=== PATIENT | female | born 1985 | race African-American/Black ===

== ENCOUNTER 2018-08-15 19:06 | Emergency (ER) | payer MEDICAID ==
[~2018-08-15] VITALS: Ht 167.6 cm; Wt 118.0 kg
[~2018-08-15 19:06] MED LIST: ABILIFY; ASPI-986 PO; PREN-88 PO; ZYPREXA
[2018-08-15 19:46] VITALS: BP 167/108
[2018-08-15] MEDS ORDERED: ACETAMINOPHEN 325MG TABLET ONE (19:56)
[2018-08-15 21:05] LABS: CLARITY URINE CLEAR (CLEAR); COLOR URINE DARK YELLOW (YELLOW); KETONES URINE TRACE (NEGATIVE); LEUKOCYTE ESTERASE URINE NEGATIVE (NEGATIVE); NITRITE URINE NEGATIVE (NEGATIVE); OCCULT BLOOD URINE 2+ (NEGATIVE); PH URINE 6.5 (4.5-8.0); PROTEIN URINE 1+ (NEGATIVE); SPECIFIC GRAVITY URINE 1.042 (1.005-1.030)
== END 2018-08-15 22:07 | disposition left against medical advice (07) ==
LOC: ER 19:06
DX: M79.10 Myalgia, unspecified site (principal); R68.83 Chills (without fever); Z53.21 Procedure and treatment not carried out due to patient leaving prior to being seen by health care provider
CPT/HCPCS: 81025

== ENCOUNTER 2021-07-07 11:31 | Emergency (ER) | payer MEDICAID ==
[~2021-07-07] VITALS: Ht 172.7 cm; Wt 92.0 kg
[2021-07-07] MEDS ORDERED: IPRATROPIUM BROMIDE (0.02%) 0.5MG/2.5ML NEB HHN STA (11:47)
[2021-07-07] MEDS ORDERED: METHYLPREDNISOLONE SOD SUCC 125 MG/2 ML VIAL IM STA (11:47)
[2021-07-07] MEDS ORDERED: ALBUTEROL (0.083%) 2.5MG/3ML NEB HHN STA (11:47)
[2021-07-07] MEDS ORDERED: IPRATROPIUM BROMIDE (0.02%) 0.5MG/2.5ML NEB HHN NR (13:15)
[2021-07-07] MEDS ORDERED: ALBUTEROL (0.083%) 2.5MG/3ML NEB HHN NR (13:30)
[2021-07-07] MEDS ORDERED: ALBU18HF2 IH (14:43)
[2021-07-07] MEDS ORDERED: P50 PO (14:43)
[2021-07-07 14:47] VITALS: BP 135/77
== END 2021-07-07 15:07 | disposition home or self-care (01) ==
LOC: ER 13:29
DX: J45.901 Unspecified asthma with (acute) exacerbation (principal); I49.9 Cardiac arrhythmia, unspecified; Z88.2 Allergy status to sulfonamides
CPT/HCPCS: 71045; 93005; 94640; 96372; 99284; J2930; Z7610

== ENCOUNTER 2021-08-28 09:24 | Emergency (ER) | payer MEDICAID, OTHER ==
[~2021-08-28] VITALS: Ht 172.7 cm; Wt 131.0 kg
[~2021-08-28 09:24] MED LIST changes: +ALBU18HF2 IH; +P50 PO
[2021-08-28] MEDS ORDERED: PREDNISONE 20MG TABLET PO STA (09:40)
[2021-08-28] MEDS ORDERED: ALBUTEROL (0.083%) 2.5MG/3ML NEB HHN STA ×2 (09:40→09:45)
[2021-08-28] MEDS ORDERED: IPRATROPIUM BROMIDE (0.02%) 0.5MG/2.5ML NEB HHN STA ×2 (09:40→09:45)
[2021-08-28] MEDS ORDERED: P50 MT (10:04)
[2021-08-28] MEDS ORDERED: GUAI600T26 MT (10:04)
[2021-08-28] MEDS ORDERED: ALBU6.7H9 INH (10:04)
[2021-08-28 11:03] VITALS: BP 140/86
== END 2021-08-28 11:04 | disposition home or self-care (01) ==
LOC: ER 09:24
DX: J45.901 Unspecified asthma with (acute) exacerbation (principal); Z88.2 Allergy status to sulfonamides
CPT/HCPCS: 71045; 81025; 94644; 99285; J7512; Z7610

== ENCOUNTER 2021-12-07 11:47 | Emergency (ER) | payer MEDICAID, OTHER ==
[~2021-12-07] VITALS: Ht 172.7 cm; Wt 85.0 kg
[~2021-12-07 11:47] MED LIST changes: +ALBU6.7H9 INH; +GUAI600T26 MT; +P50 MT
[2021-12-07 12:03] VITALS: BP 130/93
[2021-12-07] MEDS ORDERED: IPRATROPIUM/ALBUTEROL 0.5-3(2.5)MG/3ML NEB HHN ONE (13:30)
[2021-12-07] MEDS ORDERED: P20 MT (15:15)
[2021-12-07] MEDS ORDERED: PREDNISONE 20MG TABLET PO ONE (15:15)
== END 2021-12-07 15:38 | disposition home or self-care (01) ==
LOC: ER 11:47
DX: J45.901 Unspecified asthma with (acute) exacerbation (principal); J06.9 Acute upper respiratory infection, unspecified; Z20.822 Contact with and (suspected) exposure to COVID-19; Z79.82 Long term (current) use of aspirin; Z88.2 Allergy status to sulfonamides
CPT/HCPCS: 71045; 87426; 94640; 99284; C9803; J7512; Z7610